=== PATIENT | female | born 1950 | race Caucasian/White ===

== ENCOUNTER → 2016-11-01 | Outpatient (CLI) | payer BC ==
[~2016-11-01] MED LIST: CHOL100010 PO; [UNRECOGNIZED DRUG - OTHER] PO
== END | disposition home or self-care (01) ==
LOC: C.PAPS 14:16
PROVIDERS: ATTEND Obstetrics & Gynecology
DX: Z01.419 Encounter for gynecological examination (general) (routine) without abnormal findings (principal); N95.2 Postmenopausal atrophic vaginitis

== ENCOUNTER → 2016-12-27 | Outpatient (CLI) | payer BC ==
--- NOTE | 2016-12-27 15:30 | MAMMOGRAPHY REPORT ---
BILATERAL DIGITAL SCREENING MAMMOGRAM TOMOSYNTHESIS WITH CAD: 12/27/2016 CLINICAL HISTORY: Routine screening. TECHNIQUE: Breast tomosynthesis in addition to standard 2D mammography was performed. Current study was also evaluated with a Computer Aided Detection (CAD) system. COMPARISON: Comparison is made to exams dated: 12/27/2015 mammogram, 12/22/2014 mammogram, 12/18/2012 mammogram, 12/21/2013 mammogram, 12/18/2011 mammogram, and 12/15/2010 mammogram - [facility]. BREAST COMPOSITION: The tissue of both breasts is heterogeneously dense, which may obscure small mas ses. FINDINGS: No suspicious masses, calcifications, or areas of architectural distortion are noted in ei ther breast. There has been no significant interval change compared to prior exams. There is a stabl e asymmetry in the left lateral breast on the cc view. IMPRESSION: ACR BI-RADS CATEGORY 2: BENIGN There is no mammographic evidence of malignancy. A 1 year screening mammogram is recommended. The pa tient will receive written notification of the results. Approximately 10% of breast cancers are not detected with mammography. A negative mammographic report should not delay biopsy if a clinically suggestive mass is present. Yojana rCuz M.D. /:12/27/2016 14:34:16 Manager Product Design: Benjamin VALADEZ)(M), [facility] letter sent: Normal 1/2 BI-RADS Code: ACR BI-RADS Category 2: Benign
== END | disposition home or self-care (01) ==
LOC: C.MAMM 08:48
PROVIDERS: ATTEND Obstetrics & Gynecology
DX: Z12.31 Encounter for screening mammogram for malignant neoplasm of breast (principal)

== ENCOUNTER → 2017-01-22 | Outpatient (CLI) | payer BC ==
[2017-01-22 14:07] LABS: URINE APPEARANCE CLEAR (CLEAR); URINE BILIRUBIN NEG (NEG); URINE COLOR YELLOW; URINE NITRITE NEG (NEG); URINE SPECIFIC GRAVITY 1.007 (1.000-1.030); UROBILINOGEN NEG (NEG)
[2017-01-22 14:15] LABS: MANUAL MICROSCOPIC REQUIRED? YES; REVIEW REQ? NO
[2017-01-22 14:30] LABS: URINE BACTERIA 2+ (NEG); URINE WBC >30 /hpf (0-5)
== END | disposition home or self-care (01) ==
LOC: C.LAB1850 11:54
PROVIDERS: ATTEND Internal Medicine
DX: N39.0 Urinary tract infection, site not specified (principal)

== ENCOUNTER 2023-09-19 08:23 | Observation (INO) ==
--- NOTE | 2023-08-14 11:40 | PAT Medication Instructions ---
Medication Instructions Date of Service August 14, 2023 Home Medications Medication Instructions Recorded rosuvastatin 10 mg tablet 10 mg PO DAILY #90 tabs 12/31/22 cholecalciferol (vitamin D3) 25 mcg (1,000 unit) capsule 1,000 units PO DAILY omega 3 350 mg-dha 235 mg-epa 90 mg-fish oil 597 mg capsule,delay rel (Fred[place]-3) 1 cap PO DAILY calcium carbonate (Calcium 600) 600 mg PO DAILY mecobalamin (vitamin B12) 1 tab PO DAILY rosuvastatin 10 mg tablet 10 mg PO DAILY amlodipine 5 mg tablet 5 mg PO HS enoxaparin 30 mg/0.3 mL subcutaneous syringe 20 mg subcut UD PRN when flying Continue as directed rosuvastatin 10 mg tablet 10 mg PO DAILY ASK your prescriber and surgeon enoxaparin 30 mg/0.3 mL subcutaneous syringe 20 mg subcut UD PRN when flying-- call PAT and surgeon if flying within 1 week of surgery. STOP taking 2 weeks before surgery (or as soon as possible if surgery is within 2 weeks) omega 3 350 mg-dha 235 mg-epa 90 mg-fish oil 597 mg capsule,delay rel (Frederic-3) 1 cap PO DAILY DO NOT take the morning of surgery cholecalciferol (vitamin D3) 25 mcg (1,000 unit) capsule 1,000 units PO DAILY calcium carbonate (Calcium 600) 600 mg PO DAILY mecobalamin (vitamin B12) 1 tab PO DAILY Take evening before surgery amlodipine 5 mg tablet 5 mg PO HS Other Notes NOTHING TO EAT OR DRINK AFTER MIDNIGHT. If you have any questions please call us at [phone] or [phone] or [phone] or [phone]
--- NOTE | 2023-08-21 09:38 | Anesthesiology Consultation ---
Date of Service August 21, 2023 Assessment & Plan (1) Encounter for pre-operative examination: - awaiting [place] PCP response to workload note regarding hyperkalemia and leukopenia. - Outpatient joint pathway: Per surgeon and patient, plan for outpatient joint program. Upon review of chart-patient is an acceptable candidate for Same Day Joint Program from anesthesia perspective pending perioperative course. Pending patient is motivated, has good support and surgeon's office completes Same Day Joint Program preop requirements-patient may proceed with outpatient OPAL per discussion with Dr. Fallon. Chart Review Chart Review: Pending: Refer to Additional Notes / Consult section and Patient seen in Pre Admission Testing Teaching & Discussion Pre-Anesthesia Teaching/Discussion Notes: Instructed NPO after midnight before surgery, except medications with 15 cc of water. Medication instructions provided according to the PAT guidelines. History Surgery Operation Date: 09/19/23 09:10 Proposed Procedures p OP: Left Total Hip Arthroplasty - Dewayne Lorenzo MD Height/Weight Height: 5 ft 8 in Weight: 55.2 kg Allergies Allergy/AdvReac Type Severity Reaction Status Date / Time No Known Allergies Allergy Verified 08/08/23 10:48 Medications Home Medications Medication Instructions Recorded Confirmed Last Taken cholecalciferol (vitamin D3) 25 1,000 units PO DAILY 08/13/18 08/08/23 08/11/19 mcg (1,000 unit) capsule omega 3 350 mg-dha 235 mg-epa 90 1 cap PO DAILY 04/21/19 08/08/23 08/11/19 mg-fish oil 597 mg capsule,delay rel ([place]-3) calcium carbonate (Calcium 600) 600 mg PO DAILY 06/09/21 08/08/23 Unknown mecobalamin (vitamin B12) 1 tab PO DAILY 04/18/22 08/08/23 Unknown rosuvastatin 10 mg tablet 10 mg PO DAILY #90 tabs 12/31/22 08/08/23 Unknown amlodipine 5 mg tablet 5 mg PO HS 05/02/23 08/08/23 Unknown enoxaparin 30 mg/0.3 mL 20 mg subcut UD PRN when flying 08/08/23 08/08/23 Unknown subcutaneous syringe Past Medical History Medical History History of COVID-19 (01/2023) no hosp; resolved HTN (hypertension) controlled, stable per pt Hx pulmonary embolism 2011 or 2012? following travel - treated w/ AC therapy - using lovenox PRN with travel Leukopenia monitored by PCP Nausea and vomiting after administration of anesthetic agent denies needing scop patch Sensorineural hearing loss of both ears Patient denies h/o stroke, seizures, heart attack, heart failure, DM, or blood transfusions. Exercise / Class Metabolic Activity II 4-5 Yardwork/Stairs/Walk up hill (denies chest discomfort or shortness of breath with one flight of stairs) Past Family History Family History Mother Cerebral atherosclerosis Stroke Father Bladder cancer Other No family history of adverse response to anesthesia Denies family history of Colon cancer Ovarian cancer Prostate cancer Myocardial infarction Breast cancer Past Surgical History Surgical History History of colonoscopy History of surgical removal of ganglion cyst right foot History of tubal ligation Past Anesthesia History No Hx of Anesthesia Complications and No Family Hx of Anesthesia Complications History of PONV No Hx of Motion Sickness and History of PONV (denies needing scop patch) Social History Smoking Status: Never smoker Do You Dip or Chew Tobacco: No Hx Alcohol Use: Yes Alcohol type: wine alcohol intake frequency: a few times a month Hx Substance Use: No substance use type: does not use Review of Systems Snoring, denies witnessed apneas. Patient denies chest pain, shortness of breath, dyspnea on exertion, reflux, fever, chills, cough, wheezing, or palpitations. Physical Exam Vital Signs Vitals BP 105/71 P 68 TEMP 97.5 SP02 98% on RA RESP 18 Physical Patient resting comfortably in chair in no acute distress, alert and oriented, responding appropriately throughout visit Full cervical extension range of motion without pain TMD 3.5 finger breadths Mallampati Score 2 Dentition: several crowns; denies chipped or loose teeth, caps, implants or bridges Lungs: normal respiratory effort. Good air movement, clear throughout to auscultation, no adventitious breath sounds Cardiac: regular rate and rhythm, no murmurs noted Carotid arteries: negative bruit bilat Lab Results Anesthesia Preop Results Results Anesthesia Widget: WBC 2.70 K/ul (4.8-10.8) L 08/21/23 Hgb 12.8 g/dl (12.0-16.0) 08/21/23 Hct 39.1 % (37.0-47.0) 08/21/23 Plt 198 K/uL (130-400) 08/21/23 Na 138 mmol/L (136-145) 08/21/23 K 5.4 mmol/L (3.5-5.1) H 08/21/23 Cl 105 mmol/L (98-107) 08/21/23 CO2 30 mmol/L (21-32) 08/21/23 BUN 11 mg/dl (6-23) 08/21/23 Creat 0.65 mg/dl (0.6-1.2) 08/21/23 Glucose Level 96 mg/dl (70-99(Fasting)) 08/21/23 PT 10.3 Seconds (9.0-12.0) 08/21/23 PTT 24 Seconds (21-31) 08/21/23 INR 0.9 (0.9-1.1) 08/21/23 Urine Color Yellow 08/21/23 Urine Appearance Clear (Clear) 08/21/23 Urine pH 7.5 (4.5-7.5) 08/21/23 Urine Specific [place] 1.006 (1.000-1.030) 08/21/23 Urine Protein Negative (Negative) 08/21/23 Urine Glucose (UA) Negative (Negative) 08/21/23 Urine Ketones Negative (Negative) 08/21/23 Urine Blood Negative (Negative) 08/21/23 Urine Nitrite Negative (Negative) 08/21/23 Urine Bilirubin Negative (Negative) 08/21/23 Urine Urobilinogen Negative (Negative) 08/21/23 Urine Leukocyte Esterase Negative (Negative) 08/21/23 Blood Type O Positive 08/21/23 Antibody Screen NEGATIVE 08/21/23 Testing Laboratory Results Chronic leukopenia and hyperkalemia to chart review. Electrocardiogram Date: 08/21/23 Sinus rhythm with 1st degree AV block, rate 65 bpm
--- NOTE | 2023-08-21 15:46 | History & Physical Report ---
Date of Service August 21, 2023 Assessment & Plan (1) Osteoarthritis of left hip: Plan: PRE-OP Diagnosis: Left hip osteoarthritis Planned Procedure: Left total hip arthroplasty Plan: Patient is scheduled to undergo this procedure at the [facility] following the outpatient total joint pathway with Dr. Lorenzo on September. Risks and complications of the procedure such as: Infection, bleeding, pain, scarring, nerve blood vessel damage, weakness, wound problems, stiffness, incomplete relief of symptoms, hardware failure, hardware loosening, wear, fracture, tendon or ligament injury, dislocation, leg length inequality, blood clots, Embolism, heart attack, stroke and were explained to the patient at her visit today. Informed consent to perform the procedure was obtained. Patient has an appointment to meet with anesthesia later this morning and while there will obtain CBC with differential, complete metabolic panel, PT/INR, blood type and screen, urinalysis, urine culture and sensitivity, EKG, and a nasal culture for MRSA. Patient will also need preoperative medical clearance from their primary care provider Dr. Atwood. Patient states that she plans on doing in-home physical therapy for the first 1 to 2 weeks postoperatively with [facility]. Patient states that she will most likely elect to do outpatient physical therapy at our PT clinic. Patient has a walker but will need a raised toilet seat, shower chair and a hip kit. During today's visit we reviewed the total hip packet as well as precautions. We discussed discharge planning from the hospital. I provided paperwork to obtain a handicap placard for their vehicle. We discussed lectures offered by [facility] in regards to joint replacement surgery via Zoom. During today's visit I sent prescriptions to the patient's pharmacy for oxycodone, diclofenac sodium, Zofran, cephalexin and Xarelto. We will use Xarelto due to her previous history of pulmonary embolism. Patient will be scheduled for 2- week postoperative follow-up visit with myself on October 02. This chart was completed utilizing [employer] voice recognition software. Grammatical errors, random word insertions, pronoun errors, and in complete sentences are an occasional consequence of the system. Any questions or concerns about the content, text, or information contained within the body of this dictation should be addressed directly to the physician for clarification. History of Present Illness Chief Complaint: Chief Complaint: Left hip pain Primary Care Provider: Juma Atwood MD History of Present Illness (including history relevant to procedure): 73-year-old female presents to the clinic today for preoperative history and physical. Patient states she has had intermittent hip pain for the past 10 years. She notes increased soreness that started about 6 weeks ago and has not improved since. Patient was seen by her PCP and received X-rays and was told she has severe arthritis. She is unable to localize her pain but points over her lateral hip. Her hip pain has altered her gait and at times causes aching that travels down her leg just above her ankle. Patient occasionally takes Tylenol and Advil with mild relief of her symptoms. She is elected to proceed with s urgical intervention at this time. Review Of Systems: A 12 point review of systems is performed and is unremarkable except for those things stated in the HPI and past medical history. Past Medical History: Problems: Osteoporosis Skin lesion Pulmonary embolism Procedure History Procedure Procedure Date Comments Shave biopsy of skin - right forehead at hairline Shave biopsy of skin 02/15/2022 Allergies and Sensitivities: NKA Current Home Meds: (Last Updated 08/20 08:40) amLODIPine (amLODIPine 5 mg oral tablet) 30 unknown unit, TAKE 1 TABLET BY MOUTH EVERY DAY Responsible Provider: JUMA ATWOOD 02/15 14:13 calcium carbonate (calcium (as carbonate) 600 mg oral tablet) one daily cephalexin (cephalexin 500 mg oral capsule) 500 mg PO tid Post op infection prophylaxis cholecalciferol (Vitamin D3 1000 intl units oral capsule) 1,000 Int_Unit PO Daily PRN: when flying when flying cyanocobalamin (Vitamin B12 50 mcg oral tablet) 50 mcg PO Daily diclofenac (diclofenac sodium 75 mg oral delayed release tablet) 75 mg PO bid PRN: as needed for pain with food enoxaparin (enoxaparin 30 mg/0.3 mL injectable solution) INJECT 20MG UNDER THE SKIN DIRECTED PRIOR TO TRAVEL omega-3 polyunsaturated fatty acids (omega-3 polyunsaturated fatty acids 1000 mg oral capsule) 1,000 mg PO Daily ondansetron (Zofran 4 mg oral tablet) 4 mg PO q8h Post op Nausea oxyCODONE (oxyCODONE 5 mg oral tablet) 5 mg PO q4h PRN: as needed for pain Post op pain controlOngoing TxMax 6/day rivaroxaban (Xarelto 15 mg oral tablet) 15 mg PO Daily Post op blood clot prophylaxis rosuvastatin (rosuvastatin 10 mg oral tablet) 30 unknown unit, TAKE 1 TABLET BY MOUTH EVERY DAY Responsible Provider: JUMA ATWOOD 02/15 14:13 Initial Wt: 08/20 55.0 kg 121 lb Allergies Allergy/AdvReac Type Severity Reaction Status Date / Time No Known Allergies Allergy Verified 08/08/23 10:48 Home Medications Medication Instructions Recorded Confirmed Type cholecalciferol (vitamin D3) 25 1,000 units PO DAILY 08/13/18 08/08/23 History mcg (1,000 unit) capsule omega 3 350 mg-dha 235 mg-epa 90 1 cap PO DAILY 04/21/19 08/08/23 History mg-fish oil 597 mg capsule,delay rel ([place]-3) calcium carbonate (Calcium 600) 600 mg PO DAILY 06/09/21 08/08/23 History mecobalamin (vitamin B12) 1 tab PO DAILY 04/18/22 08/08/23 History rosuvastatin 10 mg tablet 10 mg PO DAILY #90 tabs 12/31/22 08/08/23 Rx amlodipine 5 mg tablet 5 mg PO HS 05/02/23 08/08/23 History enoxaparin 30 mg/0.3 mL 20 mg subcut UD PRN when flying 08/08/23 08/08/23 History subcutaneous syringe Past Med/Surg History Problem List (Updated 08/21/23 @ 15:45 by Aubrey Valente PA-C) Osteoarthritis of left hip Left leg pain 06/12/23 Routine gynecological examination Low vitamin B12 level Dysfunction of right eustachian tube Tinnitus, bilateral Pure hypercholesterolemia Primary hypertension Osteoporosis Vitamin D deficiency Encounter for health maintenance examination Colon cancer screening History of pulmonary embolism (Acute ~2011) 2011 or 2012? following travel - treated w/ AC therapy - using lovenox PRN with travel Medical History Sensorineural hearing loss of both ears Leukopenia monitored by PCP History of COVID-19 (01/2023) no hosp; resolved HTN (hypertension) controlled, stable per pt Hx pulmonary embolism 2011 or 2012? following travel - treated w/ AC therapy - using lovenox PRN with travel Nausea and vomiting after administration of anesthetic agent denies needing scop patch Surgical History History of surgical removal of ganglion cyst right foot History of tubal ligation History of colonoscopy Family History Mother Cerebral atherosclerosis Stroke Father Bladder cancer Other No family history of adverse response to anesthesia Denies family history of Colon cancer Ovarian cancer Prostate cancer Myocardial infarction Breast cancer Social History Smoking Status: Never smoker Second Hand Exposure: No; Do You Dip or Chew Tobacco: No; Hx Alcohol Use: Yes Alcohol type: wine Hx Substance Use: No Preferred Language: Gambian Communication Ability: Effective Visual Impairment: No Limitations Hearing Ability: Normal [employer] Required: No Beliefs That Will Affect Care: None marital status: Current Living Situation: Spouse current occupational status: retired Feels Safe at Home: Yes caffeine: Yes Dental Care, Regularly: Yes Seatbelt Use: always Sunscreen Use: Yes Assistive Devices: Glasses and Hearing Aid - Bilateral Review of Systems All systems reviewed & are unremarkable except as noted in Subjective Physical Exam Physical Exam: Physical Exam: (relevant to the procedure, including heart and lung evaluation) General: Alert and oriented x 3 with proper grooming and hygiene Eyes: Pupils are equal reactive to light with accommodation. Extraocular movements are intact Throat: Posterior oropharynx clear with absence of edema, erythema or exudate. Dentition is appropriate. Cardiac: Regular rate and rhythm with no murmurs or gallops appreciated Lungs: Clear to auscultation throughout with no wheezing, rales or rhonchi Abdomen: Nonobese, nondistended, nontender with NABS Extremities: Left hip; flexion is limited to 110 degrees, internal rotation to 0 degrees and external rotation to 35 degrees. Straight leg raise test and central tests are both positive with referred pain to the groin and lateral aspect of the hip. Scour and impingement tests are both positive. Patient does experience tenderness to palpation in the groin area. She is neurovascularly intact. Neuro: Cranial nerves II through XII are intact no motor or sensory deficit Skin: Normal in appearance no open skin areas or discharge Results & Data Diagnostic Findings Studies (relevant to the procedure): AP and frog leg lateral views of theleft hipobtained on 06/12/2023 independently interpreted by me show joint space narrowing, osteophytes, and thickening of cortices
[~2023-09-19 08:23] MED LIST changes: -CHOL100010 PO; +MEPIVACAINE HCL 1.5% 30 ML VIAL ONE; +ROPIV 0.5% 246mg, Ketorolac 30mg, EPINEPHrine 0.5mg in NSS INFIL SCH; -[UNRECOGNIZED DRUG - OTHER] PO
[2023-09-19] MEDS ORDERED: PROPOFOL IV EMULSION 10 MG/ML 20 ML VIAL IV ONE (08:55)
[2023-09-19] MEDS ORDERED: fentaNYL citrate PF 100 MCG/2 ML VIAL ONE (08:56)
[2023-09-19] MEDS ORDERED: MIDAZOLAM HCL 1 MG/ML 2ML VIAL ONE (08:56)
[2023-09-19] MEDS ORDERED: ATROPINE SULFATE 0.1 MG/ML 10ML SYR IV PRN (09:26)
[2023-09-19] MEDS ORDERED: DROPERIDOL 5 MG/2 ML VIAL IV PRN (09:26)
[2023-09-19] MEDS ORDERED: HYDROmorphone INJ 1 MG/ML SYRINGE IV PRN (09:26)
[2023-09-19] MEDS ORDERED: ePHEDrine sulfate 50 MG/ML AMP IV PRN (09:26)
[2023-09-19] MEDS: LR 500ML BOLUS, THEN 15ML/HR IV SCH (09:37)
[2023-09-19] MEDS: LR 60ML/HR IV SCH (09:37)
[2023-09-19] MEDS: FAMOTIDINE 20 MG TAB PO SCH (09:37)
--- NOTE | 2023-09-19 09:37 | History & Physical Bridge Note ---
Date of Service September 19, 2023 History & Physical Bridge Note I have examined the patient, reviewed the History & Physical and in the interval since the performance of the History & Physical I have noted the following changes of clinical significance: no changes noted
[2023-09-19] MEDS: Scopolamine 1 MG TDSY TD SCH (09:38)
[2023-09-19] MEDS: traMADol HCL 50 MG TABLET PO SCH (09:38)
[2023-09-19] MEDS: CeleBREX 200 MG CAP PO SCH (09:38)
[2023-09-19] MEDS: ACETAMINOPHEN 500 MG TAB PO SCH ×2 (09:38→22:15)
[2023-09-19] MEDS: dexAMETHasone**PF** 10 MG/ML VIAL IV SCH (09:39)
[2023-09-19] MEDS: TRANEXAMIC ACID 1,000 MG **IV Pre-op IV SCH (09:52)
[2023-09-19] MEDS: ceFAZolin 2000MG 2,000 MG/15 ML SYR IV SCH ×2 (10:03→22:15)
[2023-09-19] MEDS ORDERED: ONDANSETRON INJ 2 MG/ML 2 ML VIAL ONE (10:19)
[2023-09-19] MEDS: ORTHO JOINT ANESTHETIC ONE (10:35)
[2023-09-19] MEDS ORDERED: PHENYLEPHRINE 100MCG/ML 10ML SYR IV ONE (10:51)
[2023-09-19] MEDS: ROPIVACAINE 0.5% HCL/PF 246 MG, Ketorolac (*for OR use only*) 30 MG, EPINEPHrine 30MG/3... INFIL SCH (11:08)
[2023-09-19] MEDS: TRANEXAMIC ACID 1,000 MG **IV Intra-op IV SCH (11:18)
--- NOTE | 2023-09-19 11:38 | Operative Report ---
Post Operative Report Pre & Post Diagnosis Operation Date: 09/19/23 10:20 Pre-Op Diagnosis: Left Hip Osteoarthritis Post-Op Diagnosis: Left Hip Osteoarthritis I identified the patient and participated in the time-out.: Yes Procedure Operation Date: 09/19/23 10:20 Actual Procedures p Left Total Hip Arthroplasty(Left) - Dewayne Lorenzo MD Surgeon Dewayne Lorenzo MD Special Procedure Tech WILFRID Valente PA-C. No resident or fellow was available to assist. Estimated Blood Loss 100 Findings Consistent with Post-Op Diagnosis Specimens Left femoral head Anesthesia Type Spinal MAC Complications none Disposition Disposition: Recovery Room Indications 73-year-old female, with left hip arthritis refractory to conservative management. X-rays and a CT scan were obtained. This shows severe osteoarthritis with extremely large osteophyte formations around the femoral head. I had a long discussion with her about the diagnosis. We talked about the risks and benefits of surgery, alternatives to surgery, and expected outcomes. After reviewing all these she elected to proceed with surgery. All questions were answered. Informed consent was signed. Description of Procedure Patient was identified in the preoperative holding area where the surgical site, left hip, was marked. A spinal anesthetic was placed, then the patient was brought back to the main operating room, placed in the operating table and moved into the lateral decubitus position. Axillary roll was placed. All bony prominences were padded. Perioperative antibiotics and tranexamic acid 1 gram IV were administered. The operative extremity was prepped and draped in the normal sterile fashion. Prior to incision a multidisciplinary timeout was called. All in the room were in agreement. We began by making an incision for a posterior approach to the hip. We dissected down through subcutaneous tissues to the level of the fascia. The fascia was incised in line with the incision. Charnley bow was placed. Fatty tissue was reflected posteriorly off the back of the greater trochanter to expose the piriformis and short external rotators of the hip. Quadratus femoris was taken off the femur subperiosteally. The piriformis and short external rotators were dissected off the posterior aspect of the hip. A box cut was made in the capsule. Inferior hip capsule was released off the femur. The femoral head was dislocated. The femoral neck cut was made at our preoperative template. The acetabulum was then exposed. The labrum was sharply excised. Contents of the cotyloid fossa were removed with electrocautery. We then began reaming at a size 8 mm less than our preoperative template. We reamed up by 1 [address] the way up to a size 58 mm cup. This gave us good bleeding cancellus bone circumferentially. The acetabulum was then irrigated out and dried. The real [place] Gription cup was then impacted down into position with 45 degrees of lateral opening and 25 degrees of anteversion. Two cancellous bone screws were placed up into the ilium. Excellent fixation was obtained. A trial liner for a 36 mm femoral head was then placed. Next we turned our attention to the femur. The lateral neck was removed with a box osteotome. Intramedullary guide was used to establish the intramedullary canal. We then broached all the way up to a size 5. We began trialing with a standard offset neck and a +1.5 head. Hip was reduced. Leg lengths were symmetric. The hip was stable in extension and external rotation, and stable in the sleeper position. At 90 degrees of hip flexion the hip could be internally rotated 70 degrees before levering out of the cup. I was very happy with the stability exam. Therefore the hip was dislocated and the femoral trial was removed. The acetabulum was re-exposed, and the trial liner was removed. Dows hole eliminator screw was placed. An Altrx polyethylene liner for a 36 mm femoral head was then impacted into the shell. The locking mechanism was checked to ensure that it had engaged which it had. The femur was re-exposed. The femoral canal was irrigated and dried. The real Actis femoral stem was opened up. This was impacted down into position. The femoral head was opened up and gently impacted down onto the trunnion. The hip was atraumatically reduced. Another 1 gram of IV tranexamic acid was started prior to closure. The wound was irrigated out with sterile Betadine solution. The periarticular injection cocktail was then placed. The short external rotators, piriformis, and posterior capsule were repaired through drill holes in the greater trochanter using #2 Vicryl. The fascia was run with a looped #1 PDS. The subcutaneous layer was closed with #1 PDS. The dermal layer was closed with 2-0 Vicryl. Zip line was used for the skin followed by a Silverlon dressing. A compressive dressing was then placed. The patient was then rolled supine. Leg lengths were rechecked and were symmetric. An abduction pillow was placed. Sedation was lifted and the patient was transferred to the recovery room in stable condition. Summary of implants: Depuy [place] Gription Acetabular Shell Sector Cup, 58 mm outer diameter Two [place] Cancellous bone screws, 6.5 x 35, and 6.5 x 25 mm Dows hole eliminator [place] Altrx Polyethylene Acetabular Liner, Neutral, with a 36 mm inner diameter DePuy Actis collared cementless Femoral stem, 12/14 taper, size 5 standard offset 36 mm ceramic femoral head with +1.5 offset Postoperative course: Patient will be discharged home from the recovery room. Patient will be weightbearing as tolerated with posterior hip precautions. Aspirin for DVT prophylaxis I attest to the content of the Intraoperative Record and any orders documented therein. Any exceptions are noted below.
[2023-09-19] MEDS ORDERED: MAGNESIUM HYDROXIDE SUSP 30 ML UDC PO PRN ×2 (11:43→15:26)
[2023-09-19] MEDS ORDERED: ONDANSETRON INJ 2 MG/ML 2 ML VIAL IV PRN ×2 (11:43→15:26)
[2023-09-19] MEDS ORDERED: bisacodyL 10 MG SUPP PR PRN ×2 (11:43→15:26)
[2023-09-19] MEDS ORDERED: ALUMINUM/MAGNESIUM SUSP 30 ML UDC PO PRN ×2 (11:43→15:26)
[2023-09-19] MEDS ORDERED: HYDROmorphone INJ 0.5 MG/0.5 ML SYR IV PRN (11:43)
[2023-09-19] MEDS ORDERED: diphenhydrAMINE 50 MG/ML VIAL IV PRN ×2 (11:43→15:26)
[2023-09-19] MEDS ORDERED: METOCLOPRAMIDE HCL INJ 5 MG/ML 2 ML VIAL IV PRN ×2 (11:43→15:26)
[2023-09-19] MEDS ORDERED: oxyCODONE HCL IR 5 MG TAB (IMMEDIATE RELEASE) PO PRN ×2 (11:43→15:26)
[2023-09-19] MEDS ORDERED: NALOXONE HCL 0.4 MG/1 ML VIAL/CARP IV PRN ×2 (11:43→15:26)
--- NOTE | 2023-09-19 11:43 | Operative Report ---
Post Operative Report Pre & Post Diagnosis Operation Date: 09/19/23 10:20 Pre-Op Diagnosis: Left Hip Osteoarthritis Post-Op Diagnosis: Left Hip Osteoarthritis I identified the patient and participated in the time-out.: Yes Procedure Operation Date: 09/19/23 10:20 Actual Procedures p Left Total Hip Arthroplasty(Left) - Dewayne Lorenzo MD Surgeon Dewayne Lorenzo MD [place] WILFRID Valente PA-C. No resident or fellow was available to assist. Estimated Blood Loss 100 Findings Consistent with Post-Op Diagnosis Specimens femoral head Description of Procedure I was present during the entire case assisting with positioning, prepping, draping, wound retraction, wound closure, dressing and abduction pillow placement. No fellow present. Please see Dr. Lorenzo procedure note for specifics of the case. I attest to the content of the Intraoperative Record and any orders documented therein. Any exceptions are noted below.
[2023-09-19] MEDS ORDERED: ENOXAPARIN INJ 30 MG/0.3 ML SYR SQ PRN (11:46)
--- NOTE | 2023-09-19 13:23 | XRay Report ---
XR pelvis 1-2V routine CLINICAL HISTORY: In PACU - Post Surgical TECHNIQUE: A single frontal view of the pelvis was obtained. Comparison: Comparison is made to pelvis radiograph 08/21/2023 FINDINGS: Patient is status post total hip arthroplasty with expected postsurgical changes including soft tissu e swelling, and subcutaneous emphysema. No periarticular lucency or hardware fracture is seen. IMPRESSION: Expected postoperative appearance status post placement of total hip arthroplasty. ACT 112: Negative or not required by law. Electronically signed by: Romel Herrera M.D. 09/19/2023 1:22 PM
--- NOTE | 2023-09-19 13:49 | Anesthesiology Progress Note ---
Date of Service September 19, 2023 Anesthesia Post Procedure Vital Signs Vital Signs: Temp Pulse Pulse Resp BP Pulse Ox O2 Del Method 09/19/23 13:10 36.3 C L 65 14 118/79 96 Room Air 09/19/23 13:00 78 17 106/68 96 Room Air 09/19/23 12:50 78 17 114/84 96 Room Air 09/19/23 12:40 71 15 105/70 96 Room Air 09/19/23 12:30 67 15 109/70 97 Room Air 09/19/23 12:20 66 15 102/67 96 Room Air 09/19/23 12:10 70 15 100/68 97 Room Air 09/19/23 12:00 66 16 97/61 L 100 Room Air 09/19/23 11:50 69 16 99/60 L 100 Oxymask 09/19/23 11:40 36.2 C L 75 16 98/58 L 100 Oxymask 09/19/23 09:07 36.5 C 69 20 127/77 99 Room Air 09/19/23 08:56 36.5 C 69 20 141/89 H 99 Room Air O2 Flow Rate 09/19/23 13:10 09/19/23 13:00 09/19/23 12:50 09/19/23 12:40 09/19/23 12:30 09/19/23 12:20 09/19/23 12:10 09/19/23 12:00 09/19/23 11:50 3 09/19/23 11:40 6 09/19/23 09:07 09/19/23 08:56 Transfer of Care Handoff Completed per policy Notes Mental Status: alert / awake / arousable and participated in evaluation Nausea / Vomiting: adequately controlled Pain: adequately controlled Airway Patency, RR, SpO2: stable & adequate BP & HR: stable & adequate Hydration State: stable & adequate Anesthetic Complications: no major complications apparent and Pt Satisfied with anesthetic care
[2023-09-19] MEDS: oxyCODONE/ACETAMINOPHEN 5mg/325mg TAB PO PRN (13:58)
[2023-09-19] MEDS ORDERED: ACETAMINOPHEN 500 MG TAB PO SCH (14:00)
[2023-09-19] MEDS ORDERED: Scopolamine CHECK PATCH PLACEMENT SCH (16:00)
[2023-09-19] MEDS: KETOROLAC TROMETHAMINE 15 MG/ML VIAL ONE (16:04)
[2023-09-19] MEDS: KETOROLAC TROMETHAMINE 15 MG/ML VIAL IV SCH ×2 (16:05→18:12)
[2023-09-19] MEDS: SODIUM CHLORIDE 0.9% 1,000 ML IV SCH ×2 (16:05→17:31)
[2023-09-19] MEDS ORDERED: ceFAZolin 2000MG 2,000 MG/15 ML SYR IV SCH (17:45)
[2023-09-19] MEDS: DOCUSATE SODIUM 100 MG CAP PO SCH (20:12)
[2023-09-19] MEDS: SENNA 8.6 MG TAB PO SCH (20:13)
[2023-09-19] MEDS: ASPIRIN 81 MG ECTAB PO SCH (20:13)
[2023-09-19] MEDS ORDERED: DOCUSATE SODIUM 100 MG CAP PO SCH (21:00)
[2023-09-19] MEDS ORDERED: amLODIPine BESYLATE 5 MG TAB PO SCH (21:00)
[2023-09-19] MEDS ORDERED: CeleBREX 200 MG CAP PO SCH (21:00)
[2023-09-19] MEDS ORDERED: SENNA 8.6 MG TAB PO SCH (21:00)
[2023-09-19] MEDS ORDERED: ASPIRIN 81 MG ECTAB PO SCH (21:00)
[2023-09-20 00:07] VITALS: O2SAT 96
[2023-09-20 07:54] LABS: Eosinophils # (auto) 0.01 K/uL (0.00-0.50); Eosinophils % (auto) 0.1 %; Hematocrit (blood only) 31.5 % (37.0-47.0); Hemoglobin 10.4 g/dl (12.0-16.0); Immature Granulocytes # (auto) 0.38 K/uL (0.01-0.20); Immature Granulocytes % (auto) 4.7 %; Lymphocytes # (auto) 0.65 K/uL (1.20-3.40); Mean Corpuscular Hemoglobin 30.9 pg (25.0-34.0); Mean Corpuscular Volume 93.5 fL (80.0-100.0); Mean Platelet Volume 10.7 fL (9.4-12.4); Monocytes # (auto) 0.52 K/uL (0.11-0.59); Monocytes % (auto) 6.4 %; Neutrophils # (auto) 6.57 K/uL (1.40-6.50); Neutrophils % (auto) 80.8 %; Platelet Count 183 K/uL (130-400); RDW Coefficient of Variation 12.6 % (11.5-14.5); RDW Standard Deviation 43.5 fL (36.4-46.3); Red Blood Count 3.37 M/uL (4.20-5.40); White Blood Count 8.13 K/ul (4.8-10.8)
[2023-09-20] MEDS ORDERED: dexAMETHasone 4 MG TAB PO SCH (08:00)
[2023-09-20 08:18] LABS: BUN Creatinine Ratio 14.1 (10-20); Creatinine Clr Calc Pharmacy 68.9 ml/min; Est GFR (African American) 103.3 ml/min; Est GFR (Non-African American) 89.2 ml/min; Potassium 4.4 mmol/L (3.5-5.1)
[2023-09-20 08:32] VITALS: BP 114/70; RESP 17; TEMP 98
[2023-09-20] MEDS ORDERED: NON-FORMULARY MEDICATION (Calcium Carbonate [Calcium 600] 600 mg calcium (1,500 mg) tablet PO SCH (09:00)
[2023-09-20] MEDS ORDERED: ROSUVASTATIN CALCIUM 10 MG TAB PO SCH (09:00)
[2023-09-20] MEDS ORDERED: MULTIVITAMIN TAB PO SCH (09:00)
[2023-09-20] MEDS ORDERED: MECOBALAMIN PO SCH (09:00)
[2023-09-20] MEDS ORDERED: OMEGA DHA EPA FISH OIL PO SCH (09:00)
[2023-09-20] MEDS ORDERED: CHOLECALCIFEROL 25 MCG (1000 UNITS) TAB PO SCH (09:00)
[2023-09-20] MEDS: MULTIVITAMIN TAB PO SCH (09:16)
[2023-09-20] MEDS: dexAMETHasone 4 MG TAB PO SCH (09:16)
[2023-09-20 09:40] VITALS: PULSE 69
--- NOTE | 2023-09-20 09:50 | Orthopedic Progress Note ---
Date of Service September 20, 2023 Assessment & Plan (1) Osteoarthritis of left hip: Plan: Postop day 1-status post left total hip arthroplasty with Dr. Lorenzo Regular diet today. Home medications have been continued. PT and OT today. If safe she can be discharged home. Keep Silverlon in place. May shower with dressing in place. Weight-bear as tolerated left lower extremity with the assistance of a walker. Posterior hip precautions at all times. Use abduction pillow or standard pillow between knees when in bed and out of bed in a chair. May be out of bed as tolerated with assistance. YOAN stockings and SCDs while in house for DVT prophylaxis. Aspirin 81 mg twice daily for DVT prophylaxis. Pain medication as needed and as prescribed. Findings will be discussed with Dr. Lorenzo. H&H stable Vital signs stable. If safe in PT today will plan to discharge to home. Home health arrangements have been made. (2) Acute blood loss anemia: Plan: Stable. Asymptomatic. No need for blood transfusions. Admission and Anticipated Discharge Date Admission Date: September 19, 2023 Subjective Berta is doing well today. Her lightheadedness has resolved. She has been out of bed and doing well. Denies any significant pain in her left hip. She denies any numbness or tingling down her left leg. She has been using a walker to assist with ambulation. Physical Exam Musculoskeletal: Exam of her left hip: The postoperative compression dressing was removed. The Silverlon is in place. Is clean and dry and intact. She has no significant edema of her left lower extremity. No effusion to her left knee. Tolerates gentle flexion extension of the knee itself. No calf tenderness with palpation. No distal edema. Teds and SCDs in place. Abduction pillow between legs. Distal pulses are 1+. Sensation is normal. Strength is 5/5 in the left lower extremity. Full range of motion of the left ankle. No foot drop is present. Results & Data Vital Signs (Past 12 Hours) Vital Signs Temp Pulse Pulse Resp BP Pulse Ox O2 Del Method 09/20/23 09:39 36.7 C 72 69 17 114/70 96 09/20/23 08:31 36.7 C 72 17 114/70 96 Room Air 09/20/23 05:13 37.0 C 69 16 120/71 96 Room Air 08/09/24 00:06 36.6 C 73 16 113/65 96 Room Air Laboratory Results 09/20/23 Range/Units 07:13 WBC 8.13 (4.8-10.8) K/ul RBC 3.37 L (4.20-5.40) M/uL Hgb 10.4 L (12.0-16.0) g/dl Hct 31.5 L (37.0-47.0) % MCV 93.5 (80.0-100.0) fL MCH 30.9 (25.0-34.0) pg MCHC 33.0 (32.0-36.0) g/dL RDW Std Deviation 43.5 (36.4-46.3) fL RDW Coeff of Crow 12.6 (11.5-14.5) % Plt Count 183 (130-400) K/uL MPV 10.7 (9.4-12.4) fL Immature Gran % (Auto) 4.7 % Neut % (Auto) 80.8 % Lymph % (Auto) 8.0 % [place] % (Auto) 6.4 % Eos % (Auto) 0.1 % Baso % (Auto) 0.0 % Neut # (Auto) 6.57 H (1.40-6.50) K/uL Lymph # (Auto) 0.65 L (1.20-3.40) K/uL [place] # (Auto) 0.52 (0.11-0.59) K/uL Eos # (Auto) 0.01 (0.00-0.50) K/uL Baso # (Auto) 0.00 (0.00-0.20) K/uL Immature Gran # (Auto) 0.38 H (0.01-0.20) K/uL Sodium 138 (136-145) mmol/L Potassium 4.4 (3.5-5.1) mmol/L Chloride 109 H (98-107) mmol/L Carbon Dioxide 26 (21-32) mmol/L Anion Gap 3 (3-11) BUN 9 (6-23) mg/dl Creatinine 0.64 (0.6-1.2) mg/dl Est Cr Clr Drug Dosing 68.9 ml/min Est GFR ( Amer) 103.3 ml/min Est GFR (Non-Af Amer) 89.2 ml/min BUN/Creatinine Ratio 14.1 (10-20) Glucose 110 H (70-99(Fasting)) mg/dl Calcium 8.0 L (8.6-10.3) mg/dl Diagnostic Findings XR pelvis 1-2V routine CLINICAL HISTORY: In PACU - Post Surgical TECHNIQUE: A single frontal view of the pelvis was obtained. Comparison: Comparison is made to pelvis radiograph 08/21/2023 FINDINGS: Patient is status post total hip arthroplasty with expected postsurgical changes including soft tissue swelling, and subcutaneous emphysema. No periarticular lucency or hardware fracture is seen. IMPRESSION: Expected postoperative appearance status post placement of total hip arthroplasty.
--- NOTE | 2023-09-20 09:57 | Discharge Summary ---
Date of Service September 20, 2023 Admission HPI Per Admitting Provider History of Present Illness (including history relevant to procedure): 73-year-old female presents to the clinic today for preoperative history and physical. Patient states she has had intermittent hip pain for the past 10 years. She notes increased soreness that started about 6 weeks ago and has not improved since. Patient was seen by her PCP and received X-rays and was told she has severe arthritis. She is unable to localize her pain but points over her lateral hip. Her hip pain has altered her gait and at times causes aching that travels down her leg just above her ankle. Patient occasionally takes Tylenol and Advil with mild relief of her symptoms. She is elected to proceed with surgical intervention at this time. Review Of Systems: A 12 point review of systems is performed and is unremarkable except for those things stated in the HPI and past medical history. Past Medical History: Problems: Osteoporosis Skin lesion Pulmonary embolism Procedure History Procedure Procedure Date Comments Shave biopsy of skin - right forehead at hairline Shave biopsy of skin 02/15/2022 Allergies and Sensitivities: NKA Current Home Meds: (Last Updated 08/20 08:40) amLODIPine (amLODIPine 5 mg oral tablet) 30 unknown unit, TAKE 1 TABLET BY MOUTH EVERY DAY Responsible Provider: JUMA QUAN 02/15 14:13 calcium carbonate (calcium (as carbonate) 600 mg oral tablet) one daily cephalexin (cephalexin 500 mg oral capsule) 500 mg PO tid Post op infection prophylaxis cholecalciferol (Vitamin D3 1000 intl units oral capsule) 1,000 Int_Unit PO Daily PRN: when flying when flying cyanocobalamin (Vitamin B12 50 mcg oral tablet) 50 mcg PO Daily diclofenac (diclofenac sodium 75 mg oral delayed release tablet) 75 mg PO bid PRN: as needed for pain with food enoxaparin (enoxaparin 30 mg/0.3 mL injectable solution) INJECT 20MG UNDER THE SKIN DIRECTED PRIOR TO TRAVEL omega-3 polyunsaturated fatty acids (omega-3 polyunsaturated fatty acids 1000 mg oral capsule) 1,000 mg PO Daily ondansetron (Zofran 4 mg oral tablet) 4 mg PO q8h Post op Nausea oxyCODONE (oxyCODONE 5 mg oral tablet) 5 mg PO q4h PRN: as needed for pain Post op pain controlOngoing TxMax 6/day rivaroxaban (Xarelto 15 mg oral tablet) 15 mg PO Daily Post op blood clot prophylaxis rosuvastatin (rosuvastatin 10 mg oral tablet) 30 unknown unit, TAKE 1 TABLET BY MOUTH EVERY DAY Responsible Provider: JUMA QUAN 02/15 14:13 Initial Wt: 08/20 55.0 kg 121 lb Discharge Data Procedures Performed Operation Date: 09/19/23 10:20 Actual Procedures p Left Total Hip Arthroplasty(Left) - Dewayne Lorenzo MD Hospital Course (1) Osteoarthritis of left hip: Patient was admitted to [facility] after undergoing and elective left total hip arthroplasty with Dr. Lorenzo. Surgery was performed September 19, 2023. Her surgery was performed with spinal anesthesia and IV sedation. She tolerated the procedure well without any intraoperative complications. She was given 2 g of IV Ancef for surgical prophylaxis which was continued for 24 hours after surgery. She was also given 1 g of IV TXA preoperatively for bleeding prophylaxis. Another dose was provided at the end of her surgery. She had x-rays in the recovery room which showed a stable left total hip arthroplasty. She was allowed out of bed, weight-bear as tolerated with the assistance of a walker at all times. She was given an abduction pillow to keep between her knees when in bed. Physical therapy and Occupational Therapy consults were placed for gait training and to review hip precautions. She was given IV Dilaudid, oxycodone, Toradol and Tylenol for postoperative pain control. Her pain was well-controlled during her inpatient stay. Her vital signs remained stable. She had some mild lightheadedness and dizziness on postoperative day 0 and was unable to be discharged home on the day of her surgery so she was kept overnight for observation. On postoperative day 1 that has resolved. She has been tolerating a regular diet. She has no longer had any lightheadedness or dizziness. Her lab work shows some mild drop in her hemoglobin suggestive of acute blood loss anemia. She remained asymptomatic. This will continue to be monitored and is as expected after surgery. No transfusions were required. She did well out of bed with physical therapy. She was deemed safe for discharge home. She was discharged to her home in stable condition on 09/20/23. Home health arrangements were made and/or confirmed by case management. Discharge instructions were reviewed. Patient understands and agrees with the plan. She has all of her prescriptions to use after surgery already at home. She did get these filled prior to her procedure. (2) Acute blood loss anemia:
== END 2023-09-20 10:11 | disposition home health service (06) ==
LOC: ASU 08:23 → 3W 08:23